=== PATIENT | male | born 1940 | race Caucasian/White ===

== ENCOUNTER 2017-08-17 00:41 | Observation (INO) | payer MEDICARE ==
[2017-08-17] VITALS (10 sets, daily range): BP systolic 137–166; BP diastolic 68–94; PULSE 79–127; RESP 18–22; TEMP 97.9–99; O2SAT 93–97
[~2017-08-17] VITALS: Ht 180.3 cm; Wt 108.0 kg
[~2017-08-17 00:41] MED LIST: ADVA250A INH; CEPH500C3 PO; DIGO0.25 PO; Duoneb HHN; PRED20 PO; SPIRCAP; VENTAER INH; ZOCO40TA PO
[2017-08-17] MEDS: RESP: ALBUTEROL 2.5 MG/IPRATROPIUM 0.5 MG NEB (SCH) INH ×3 (01:00→01:30)
[2017-08-17] MEDS ORDERED: methylPREDNISolone SOD SUCC 125 MG/2 ML VIAL IV PUSH ONE (01:00)
[2017-08-17] MEDS ORDERED: METOPROLOL TARTRATE 5 MG/5 ML VIAL IV PUSH STA (01:08)
--- NOTE | 2017-08-17 01:17 | PD ---
HPI Chief Complaint: Fall Time Seen by Provider: 00:53 Travel History International Travel<30 days: No Contact w/Intl Traveler<30days: No Traveled to known affect area: No History of Present Illness HPI 77yo M with PMH of CAD s/p cardiac stent, COPD, TIA, afib on coumadin presents to the ED with c/o multiple falls today after having dental surgery. Pt had all his teeth removed and had taken triazolam 0.25mg x2 at 12pm prior to the surgery. Pt then fell onto his knees right outside the dentist office after the surgery. Pt denies any head trauma but the said he may have hit his head. Pt was given an injection that reverses the triazolam and sent home. Pt then fell a few more times at home and could not get him up the last time he fell. Said he seems more confused today than normal and the confusion is not getting better over time today. Pt felt dizzy before but denies dizziness here. Denies any chest pain or sob but has audible wheezing and tachypnia and when asked if he wants treatment, said yes. Denies any fever, n/v, abdominal pain, focal weakness or numbness. 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) Cancer: Yes (BLADDER-- 2006 ) Cardiovascular Problems: No High Cholesterol: Yes Chemotherapy: Yes COPD: Yes Cerebrovascular Accident: Yes (05/2008) Diabetes: No Diminished Hearing: No Endocrine: No Genitourinary: Yes (bladder tumor (removed)) Immune Disorder: No Kidney Stones: No Musculoskeletal: No Neurologic: No Psychiatric: No Reproductive: No Respiratory: Yes Myocardial Infarction: Yes (2006 WITH STENT X 1) Radiation Therapy: No Renal Failure: No Sleep Apnea: No Thyroid Disease: No Tetanus Vaccination: > 5 Years Influenza Vaccination: Yes Past Surgical History Abdominal Surgery: Yes (appendix) AICD: No Appendectomy: Yes Arteriovenous Shunt: No Cardiac Surgery: Yes (CARDIAC STENT) Genitourinary Surgery: Yes (bladder tumor) Insulin Pump: No Joint Replacement: No Oral Surgery: Yes (08/16/17) Pacemaker: No Other Surgery: Yes (BLADDER CA ) Social History Alcohol Use: No (QUIT SEVERAL YEARS AGO) Tobacco Use: No (QUIT 2006) Substance Use: No Allergies-Medications (Allergen,Severity, Reaction): Coded Allergies: No Known Allergies (Verified Adverse Reaction, Unknown, 08/17/17) Reported Meds & Prescriptions Reported Meds & Active Scripts Active Reported Zostavax Inj (Zoster Vaccine Live) 0.65 Ml Inj 0.65 Ml SQ .ONCE Warfarin 2.5 Mg Tab 2.5 Mg PO Warfarin 5 Mg Tab 5 Mg PO ----BRIONES Ventolin Hfa 18 GM Inh (Albuterol Sulfate) 90 Mcg/Act Aer 1-2 Puff INH Q4-6H PRN Tramadol (Tramadol HCl) 50 Mg Tab 50 Mg PO TID PRN Refresh Tears Opth Drops (Carboxymethylcellulose Sodium Opth Drops) 0.5% Drops Incruse Ellipta Inh (Umeclidinium [place] Inh) 0.0625 Mg/Act Inh 62.5 Mcg INH DAILY Formoterol Fumarate Dihydrate 100 % Pow 12 Mcg INH Q12H Fluorouracil Topical 5% Cream 1 Applic TOPICAL BID Apply in sufficient amount to cover lesions. Apply using nonmetal applicator or suitable glove. Flunisolide Nasal [place] (Flunisolide) 0.025 Mg/Act Naspr 2 [place] EACH NARE BID Diltiazem ER 24 HR 240 Mg Caper 240 Mg PO DAILY Digoxin 0.25 Mg Tab 0.25 Mg PO - Digoxin 0.125 Mg Tab 0.125 Mg PO Atorvastatin (Atorvastatin Calcium) 80 Mg Tab 80 Mg PO HS Albuterol Neb (Albuterol Sulfate) 2.5 Mg/3 Ml Neb 2.5 Mg NEB Q4HR NEB While awake Review of Systems Except as stated in HPI: all other systems reviewed are Neg Physical Exam Narrative GENERAL: 77yo M in mild distress. SKIN: Focused skin assessment warm/dry. HEAD: Atraumatic. Normocephalic. EYES: Pupils equal and round at 3mm. EOMI. ENT: No nasal bleeding or discharge. Mucous membranes pink and moist. NECK: Trachea midline. No JVD. CARDIOVASCULAR: Irregular rate and rhythm 110s-120s. No murmur appreciated. RESPIRATORY: + accessory muscle use. Expiratory wheezing bilaterally. GASTROINTESTINAL: Abdomen soft, non-tender, nondistended. Hepatic and splenic margins not palpable. MUSCULOSKELETAL: Bilateral lower extremity: +Skin tear and ecchymoses in bilateral tib/fib. FROM in bilateral knees. Right foot: +Edema in right fourth toe. +Partial nail avulsion in right fourth toe. DP 2+ bilateral feet. Sensation intact. Moving all toes. NEUROLOGICAL: Awake and alert. No obvious cranial nerve deficits. Motor grossly within normal limits. Normal speech. PSYCHIATRIC: Appropriate mood and affect; insight and judgment normal. Data Data Last Documented VS Vital Signs Date Time Temp Pulse Resp B/P (MAP) Pulse Ox O2 Delivery O2 Flow Rate FiO2 08/17/17 02:33 99.0 94 08/17/17 02:10 20 96 Nasal Cannula 2.00 Orders Orders Complete Blood Count With Diff (08/17/17 00:54) Basic Metabolic Panel (Bmp) (08/17/17 00:54) Act Partial Throm Time (Ptt) (08/17/17 00:54) Prothrombin Time / Inr (Pt) (08/17/17 00:54) Troponin I (08/17/17 00:54) Chest, Single Ap (08/17/17 00:54) Methylprednisolone So Succ Inj (Solumedr (08/17/17 01:00) Albuterol-Ipratropium Neb (Duoneb Neb) (08/17/17 01:00) Tibia/Fibula (Ap/Lat) (08/17/17 ) Foot, Limited (2vws) (08/17/17 ) Tibia/Fibula (Ap/Lat) (08/17/17 ) Ct Brain W/O Iv Contrast(Rout) (08/17/17 ) Metoprolol Tartrate Inj (Lopressor Inj) (08/17/17 01:08) Digoxin (08/17/17 02:09) Admit Order (Ed Use Only) (08/17/17 02:49) Mri Brain W/O Contrast (08/17/17 ) Mra Brain W/O Contrast (Cow) (08/17/17 ) Mra Carotids W/O Contrast (08/17/17 ) Troponin I (08/17/17 02:49) Electrocardiogram (08/17/17 02:49) [employer] / Telemetry JADEN.Q8H (08/17/17 02:49) Vital Signs (Adult) Q4H (08/17/17 02:49) Diet Heart Healthy (08/17/17 Breakfast) Activity Oob With Assistance (08/17/17 02:49) Notify Dr: Other (08/17/17 02:49) Labs Laboratory Tests Test 08/17/17 00:55 White Blood Count 15.6 TH/MM3 Red Blood Count 5.66 MIL/MM3 Hemoglobin 16.0 GM/DL Hematocrit 48.0 % Mean Corpuscular Volume 84.9 FL Mean Corpuscular Hemoglobin 28.4 PG Mean Corpuscular Hemoglobin Concent 33.4 % Red Cell Distribution Width 15.1 % Platelet Count 269 TH/MM3 Mean Platelet Volume 7.9 FL Neutrophils (%) (Auto) 89.0 % Lymphocytes (%) (Auto) 4.5 % Monocytes (%) (Auto) 4.2 % Eosinophils (%) (Auto) 0.1 % Basophils (%) (Auto) 2.2 % Neutrophils # (Auto) 13.9 TH/MM3 Lymphocytes # (Auto) 0.7 TH/MM3 Monocytes # (Auto) 0.7 TH/MM3 Eosinophils # (Auto) 0.0 TH/MM3 Basophils # (Auto) 0.3 TH/MM3 CBC Comment AUTO DIFF Differential Comment AUTO DIFF CONFIRMED Platelet Estimate NORMAL Platelet Morphology Comment NORMAL Ovalocytes 1+ Prothrombin Time 12.0 SEC Prothromb Time International Ratio 1.2 RATIO Activated Partial Thromboplast Time 24.9 SEC Blood Urea Nitrogen 12 MG/DL Creatinine 1.20 MG/DL Random Glucose 136 MG/DL Calcium Level 8.5 MG/DL Sodium Level 140 MEQ/L Potassium Level 4.0 MEQ/L Chloride Level 106 MEQ/L Carbon Dioxide Level 22.7 MEQ/L Anion Gap 11 MEQ/L Estimat Glomerular Filtration Rate 58 ML/MIN Troponin I LESS THAN 0.02 NG/ML Digoxin Level 1.0 NG/ML [facility] Medical Decision Making Medical Screen Exam Complete: Yes Emergency Medical Condition: Yes Interpretation(s) EKG: Afib at 122bpm. 1m ST elevation in aVR. ST depression diffusely more prominent in V3-V6. Differential Diagnosis Afib RVR vs. COPD exacerbation vs. medication side effect vs. ACS Narrative Course 77yo M with multiple falls after dental surgery today where he had all his teeth extracted. Pt is in afib RVR in the 120s and audibly wheezing. EKG is concerning for ischemia but pt denies any chest pain. thought pt's confusion was due to the triazolam pt took prior to the surgery. However, it has been over 12 hours since the medication and pt is still confused as per . He is AAOx3 here. CT brain ordered to r/o CVA as well as ICH since there was a question of whether he hit his head from the fall. No focal neurologic deficits. Pt given lopressor 2.5mg IV for afib RVR. Heart rate improved after lopressor 2.5mg IV. Labs reviewed, leukocytosis at 15.6. H/H normal. BMP unremarkable. Troponin negative. CXR negative. Xray right foot showed mild to moderate osteoarthritis. No acute findings. Right fourth toe wrapped with xeroform and will need follow up with podiatry. CT brain negative. Xray bilateral tib/fib negative. Although pt has no focal neurologic deficits, pt may have had a TIA given his confusion. His said she cant tell if speech is slurred since pt had all his teeth pulled. Discussed with Dr. Prescott and he wanted me to put in orders including MRI and repeat troponin. Critical Care Narrative Aggregate critical care time was 45 minutes. Time to perform other separately billable procedures was not included in the critical care time. My time did not include minutes spent treating any other patients simultaneously or on activities that did not directly contribute to the patient's treatment. The services I provided to this patient were to treat and/or prevent clinically significant deterioration that could result in: cardiovascular collapse or . I provided critical care services requiring my management, as noted below: Chart data review, documentation time, medication orders and management, vital sign assessments/reviewing monitor data, ordering and reviewing lab tests, ordering and interpreting/reviewing x-rays and diagnostic studies, care of the patient and discussion of the patient with the admitting physicians. Diagnosis Primary Impression: Atrial fibrillation with RVR Dipika Ray DO Aug 17, 2017 01:17
[2017-08-17 01:25] LABS: AUTOMATED NEUTROPHIL # 13.9 TH/MM3 (1.8-7.7); BASOPHIL # 0.3 TH/MM3 (0-0.2); BASOPHIL % 2.2 % (0.0-2.0); EOSINOPHIL % 0.1 % (0.0-4.0); LYMPH % 4.5 % (9.0-44.0); LYMPHOCYTE # 0.7 TH/MM3 (1.0-4.8); MEAN CELL VOLUME 84.9 FL (80.0-100.0); MEAN CORPUSCULAR HEMOGLOBIN 28.4 PG (27.0-34.0); MEAN CORPUSCULAR HGB CONC 33.4 % (32.0-36.0); MEAN PLATELET VOLUME 7.9 FL (7.0-11.0); MONO % 4.2 % (0.0-8.0); MONOCYTE # 0.7 TH/MM3 (0-0.9); PLATELET COUNT 269 TH/MM3 (150-450); RED BLOOD COUNT 5.66 MIL/MM3 (4.50-5.90); RED CELL DISTRIBUTION WIDTH 15.1 % (11.6-17.2); WHITE BLOOD COUNT 15.6 TH/MM3 (4.0-11.0)
[2017-08-17 01:28] LABS: INTERNATIONAL NORMALIZED RATIO 1.2 RATIO
--- NOTE | 2017-08-17 01:36 | RADRPT ---
EXAM DATE: 08/17/2017 1:31 AM EDT AGE/SEX: 77 years / Male INDICATIONS: Trauma; fall. CLINICAL DATA: This is the patient's initial encounter. Patient reports that signs and symptoms have been present for 1 day and indicates a pain score of 3/10. MEDICAL/SURGICAL HISTORY: Cardiovascular disease. Chronic obstructive pulmonary disease. Carcinom a, bladder. Asthma, Atrial fibrillation . bladder tumor removed RADIATION DOSE: 56.35 CTDI (mGy) COMPARISON: No prior exams available for comparison. TECHNIQUE: CT of the head without contrast. Using automated exposure control and adjustment of the mA and/or kV according to patient size, radiation dose was kept as low as reasonably achievable to ob tain optimal diagnostic quality images. FINDINGS: Cerebrum: The ventricles are normal for age. No evidence of midline shift, mass lesion, hemorrhage or acute infarction. No extraaxial fluid collections are seen. Posterior Fossa: The cerebellum and brainstem are intact. The 4th ventricle is midline. The cerebe llopontine angle is unremarkable. Extracranial: The visualized portion of the orbits is intact. Skull: The calvaria is intact. No evidence of skull fracture. CONCLUSION: 1. No acute intracranial abnormalities. Electronically signed by: Bernard Santos MD 08/17/2017 1:35 AM EDT
[2017-08-17 01:40] LABS: BICARBONATE 22.7 MEQ/L (21.0-32.0); BLOOD UREA NITROGEN 12 MG/DL (7-18); CALCIUM 8.5 MG/DL (8.5-10.1); CHLORIDE 106 MEQ/L (98-107); GLOMERULAR FILTRATION RATE 58 ML/MIN (>89); GLUCOSE,RANDOM 136 MG/DL (74-106); SODIUM (NA) 140 MEQ/L (136-145)
[2017-08-17 01:43] LABS: TROPONIN I LESS THAN 0.02 NG/ML (0.02-0.05)
--- NOTE | 2017-08-17 01:45 | RADRPT ---
EXAM DATE: 08/17/2017 1:42 AM EDT AGE/SEX: 77 years / Male INDICATIONS: General weakness, and fall. CLINICAL DATA: This is the patient's initial encounter. Patient reports that signs and symptoms have been present for 1 day and indicates a pain score of 0/10. MEDICAL/SURGICAL HISTORY: . Cardiovascular disease. Chronic obstructive pulmonary disease. Carc inoma, bladder. Asthma, Atrial fibrillation . Myocardial infarction. Stroke. . Bladder tumor removed . Stent COMPARISON: No prior exams available for comparison. FINDINGS: Bony structures are intact and in normal alignment. Osseous density is slightly decreased. Soft tissu es are unremarkable. No radiopaque foreign bodies seen. CONCLUSION: No acute findings. Osteopenia. Electronically signed by: Bernard Santos MD 08/17/2017 1:44 AM EDT
--- NOTE | 2017-08-17 01:45 | RADRPT ---
EXAM DATE: 08/17/2017 1:40 AM EDT AGE/SEX: 77 years / Male INDICATIONS: General weakness, and fall. CLINICAL DATA: This is the patient's initial encounter. Patient reports that signs and symptoms have been present for 1 day and indicates a pain score of 0/10. MEDICAL/SURGICAL HISTORY: . Cardiovascular disease. Chronic obstructive pulmonary disease. Carc inoma, bladder. Asthma, Atrial fibrillation. Myocardial infarction. Stroke. . Bladder tumor removed. Stent. COMPARISON: No prior exams available for comparison. FINDINGS: There is mild to moderate osteoarthritis in the right foot. No acute fracture or dislocation. Mild os teopenia. CONCLUSION: Mild to moderate osteoarthritis. No acute findings. Electronically signed by: Bernard Santos MD 08/17/2017 1:43 AM EDT
--- NOTE | 2017-08-17 01:47 | RADRPT ---
EXAM DATE: 08/17/2017 1:44 AM EDT AGE/SEX: 77 years / Male INDICATIONS: General weakness, and fall. CLINICAL DATA: This is the patient's initial encounter. Patient reports that signs and symptoms have been present for 1 day and indicates a pain score of 0/10. MEDICAL/SURGICAL HISTORY: . Cardiovascular disease. Chronic obstructive pulmonary disease. Carc inoma, bladder. Asthma, Atrial fibrillation . Myocardial infarction. Stroke. . Bladder tumor removed . Stent. COMPARISON: No prior exams available for comparison. FINDINGS: Bony structures are intact and in normal alignment. Osseous density is normal. Soft tissues are unre markable. No radiopaque foreign bodies seen. CONCLUSION: No acute findings. Electronically signed by: Bernard Santos MD 08/17/2017 1:46 AM EDT
--- NOTE | 2017-08-17 01:48 | RADRPT ---
EXAM DATE: 08/17/2017 1:45 AM EDT AGE/SEX: 77 years / Male INDICATIONS: General weakness, and fall. CLINICAL DATA: This is the patient's initial encounter. Patient reports that signs and symptoms have been present for 1 day and indicates a pain score of 0/10. MEDICAL/SURGICAL HISTORY: . Cardiovascular disease. Chronic obstructive pulmonary disease. Carc inoma, bladder. Asthma, Atrial fibrillation . Myocardial infarction. Stroke. . Bladder tumor removed . Stent. COMPARISON: No prior exams available for comparison. FINDINGS: A single AP view of the chest demonstrates the lungs to be symmetrically aerated without evidence of mass, infiltrate or effusion. The cardiomediastinal contours are unremarkable. Osseous structures a re intact. CONCLUSION: No active disease. Electronically signed by: Bernard Santos MD 08/17/2017 1:46 AM EDT
[2017-08-17 01:57] LABS: OVALOCYTES 1+ (NORMAL)
[2017-08-17] MEDS ORDERED: DILT-48 PO (02:10)
[2017-08-17] MEDS ORDERED: ZOSTINJ SQ (02:10)
[2017-08-17] MEDS ORDERED: FLUO1CRE3 TOPICAL (02:10)
[2017-08-17] MEDS ORDERED: UMEC1INH INH (02:10)
[2017-08-17] MEDS ORDERED: ALBU0.08 NEB (02:10)
[2017-08-17] MEDS ORDERED: DIGO0.25 PO (02:10)
[2017-08-17] MEDS ORDERED: FORM1POW2 INH (02:10)
[2017-08-17] MEDS ORDERED: ATOR80TA45 PO (02:10)
[2017-08-17] MEDS ORDERED: VENTAER INH (02:10)
[2017-08-17] MEDS ORDERED: REFR0.5D4 (02:10)
[2017-08-17] MEDS ORDERED: FLUN25I EACH NARE (02:10)
[2017-08-17] MEDS ORDERED: TRAM50TA PO (02:10)
[2017-08-17] MEDS ORDERED: WARF-18 PO (02:10)
[2017-08-17] MEDS ORDERED: WARF-23 PO (02:10)
[2017-08-17] MEDS ORDERED: DIGO0.12 PO (02:10)
[2017-08-17] MEDS ORDERED: GADODIAMIDE PF 287 MG/ML 20 ML VIAL (for RAD MRI) IVCONTRAST ONE (07:55)
--- NOTE | 2017-08-17 08:07 | RADRPT ---
EXAM DATE: 08/17/2017 8:03 AM EDT AGE/SEX: 77 years / Male INDICATIONS: Dizziness. CLINICAL DATA: This is the patient's initial encounter. Patient reports that signs and symptoms have been present for 2 days and indicates a pain score of 0/10. MEDICAL/SURGICAL HISTORY: Hypertension. Afib. Abdominal aortic aneurysm repair. Bladder tumor, cardiac stent. [place] [facility] [place] [facility] [place] CAR[place], [place]17/2017. [facility] [place]/O [place], 08/17/2017. . TECHNIQUE: 3D [id number] MRA was performed. Source images, multiplanar STS MIP, and 3D volum e MIP reconstructions were reviewed. FINDINGS: There is excellent visualization of the major intracranial arteries out to the second-order branch ve ssels. There is no evidence for aneurysm, vessel truncation or stenosis, and no evidence for vascula r malformation. CONCLUSION: 1. Negative MRA Cow ([place]) non contrast. Electronically signed by: Randolph Green MD 08/17/2017 8:06 AM EDT
--- NOTE | 2017-08-17 08:34 | RADRPT ---
EXAM DATE: 08/17/2017 8:31 AM EDT AGE/SEX: 77 years / Male INDICATIONS: Dizziness. CLINICAL DATA: This is the patient's initial encounter. Patient reports that signs and symptoms have been present for 2 days and indicates a pain score of 0/10. MEDICAL/SURGICAL HISTORY: Hypertension. Cardiac stent. Abdominal aortic aneurysm repair. Bladd er tumor, cardiac stent. COMPARISON: [facility] – [place], [place] BRAIN W/O CONTRAST, 08/17/2017. . TECHNIQUE: Multiplanar, multisequence examination of the brain was performed without contrast. FINDINGS: There is mild diffuse prominence of the CSF spaces, ventricles and cisterns. There are scattered foci of increased FLAIR signal in the centrum semiovale and periventricular white matter bilaterally, mos t characteristic of chronic microvascular ischemic disease. There is no evidence for acute infarction . There is no hemorrhage. CONCLUSION: 1. Atrophy and mild white matter disease. Electronically signed by: Randolph Green MD 08/17/2017 8:33 AM EDT
--- NOTE | 2017-08-17 08:41 | HHI.HP ---
HPI Service [facility] Hospitalists Primary Care Physician Pete Cui MD, PhD Admission Diagnosis Afib RVR, possible TIA Chief Complaint: Multiple falls Travel History International Travel<30 Days: No Contact w/Intl Traveler <30 Da: No Traveled to Known Affected Are: No History of Present Illness This 77-year-old male patient with past medical history which includes COPD, bladder cancer status post resection March 2007 then TURP 2015,, AAA status post entered endovascular repair on 07/19/2014 with residual AAA sac measuring 4.6 x 4.5 cm nonvascular ultrasound March 2017, hyperlipidemia, CAD status post [place] 2008, chronic atrial fibrillation/flutter, GERD, squamous cell carcinoma and osteoarthritis. Presented to the ER with c/o multiple falls after having dental surgery. Pt had all his remaining teeth removed and had taken triazolam 0.25mg x2 at 12pm prior to the surgery. Pt then fell onto his knees right outside the dentist office after the surgery. Pt denies any head trauma but the said he may have hit his head. Pt was given an injection that reverses the triazolam and sent home. Pt then fell a few more times at home and could not get him up the last time he fell. Said he seems more confused today than normal. Pt felt dizzy before but denies dizziness here. Denies any chest pain, sob, fever, n/v, abdominal pain, focal weakness or numbness. Patient reports feeling well at this time asking to go home. Offers no complaints at this time. Review of Systems Constitutional: DENIES: Fatigue, Fever, Chills Respiratory: DENIES: Cough, Sputum production, Shortness of breath Cardiovascular: DENIES: Chest pain, Palpitations, Dyspnea on Exertion Neurologic: DENIES: Abnormal gait, Headache, Localized weakness, Speech Problems Psychiatric: DENIES: Anxiety, Confusion, Depression Past Family Social History Past Medical History COPD, bladder cancer status post resection March 2007 then TURP 2015, AAA status post entered endovascular repair on 07/19/2014 with residual AAA sac measuring 4.6 x 4.5 cm nonvascular ultrasound March 2017, hyperlipidemia, CAD status post HI 2009, chronic atrial fibrillation/flutter, GERD, squamous cell carcinoma osteoarthritis. Past Surgical History Bladder cancer resected March 2007 TURP 2016 AAA endovascular repair July 2014 Appendectomy Cataract surgery PTCA with stent placement Tonsils and adenoidectomy Reported Medications Warfarin 2.5 Mg Tab 2.5 Mg PO Warfarin 5 Mg Tab 5 Mg PO ---BRIONES Ventolin Hfa 18 GM Inh (Albuterol Sulfate) 90 Mcg/Act Aer 1-2 Puff INH Q4-6H PRN Tramadol (Tramadol HCl) 50 Mg Tab 50 Mg PO TID PRN Refresh Tears Opth Drops (Carboxymethylcellulose Sodium Opth Drops) 0.5% Drops Incruse Ellipta Inh (Umeclidinium [place] Inh) 0.0625 Mg/Act Inh 62.5 Mcg INH DAILY Formoterol Fumarate Dihydrate 100 % Pow 12 Mcg INH Q12H Fluorouracil Topical 5% Cream 1 Applic TOPICAL BID Apply in sufficient amount to cover lesions. Apply using nonmetal applicator or suitable glove. Flunisolide Nasal [place] (Flunisolide) 0.025 Mg/Act Naspr 2 [place] EACH NARE BID Diltiazem ER 24 HR 240 Mg Caper 240 Mg PO DAILY Digoxin 0.25 Mg Tab 0.25 Mg PO Digoxin 0.125 Mg Tab 0.125 Mg PO Atorvastatin (Atorvastatin Calcium) 80 Mg Tab 80 Mg PO HS Albuterol Neb (Albuterol Sulfate) 2.5 Mg/3 Ml Neb 2.5 Mg NEB Q4HR NEB While awake Allergies: Coded Allergies: No Known Allergies (Verified Adverse Reaction, Unknown, 08/17/17) Family History Family medical history includes [place] Social History Lives with significant other Denies daily EtOH use Former smoker Denies illicit drug use Physical Exam Vital Signs Vital Signs Date Time Temp Pulse Resp B/P (MAP) Pulse Ox O2 Delivery O2 Flow Rate FiO2 08/17/17 07:25 98.1 108 18 158/94 (115) 96 08/17/17 05:38 98.0 102 22 166/92 (116) 97 08/17/17 02:33 99.0 94 08/17/17 02:10 124 20 145/73 (97) 96 Nasal Cannula 2.00 08/17/17 00:49 96 Nasal Cannula 2.00 08/17/17 00:45 115 20 144/83 (103) 93 Physical Exam GENERAL: This is an elderly 77 year old male patient, well-developed patient, SKIN: No rashes, ecchymoses or lesions. Cool and dry. HEAD: Atraumatic. Normocephalic. No temporal or scalp tenderness. EYES: Extraocular motions intact. No scleral icterus. No injection or drainage. CARDIOVASCULAR: Irregularly irregular RESPIRATORY: GASTROINTESTINAL: Abdomen soft, non-tender, nondistended. No hepato-splenomegaly , or palpable masses. No guarding. MUSCULOSKELETAL: Extremities without clubbing, cyanosis, or edema. No joint tenderness, effusion, or edema noted. No calf tenderness. Negative Homans sign bilaterally. NEUROLOGICAL: Awake and alert. No focal deficits noted. Motor and sensory grossly within normal limits. 4-5 out of 5 muscle strength in all muscle groups. Normal speech. Laboratory Laboratory Tests Test 08/17/17 00:55 08/17/17 03:30 White Blood Count 15.6 Red Blood Count 5.66 Hemoglobin 16.0 Hematocrit 48.0 Mean Corpuscular Volume 84.9 Mean Corpuscular Hemoglobin 28.4 Mean Corpuscular Hemoglobin Concent 33.4 Red Cell Distribution Width 15.1 Platelet Count 269 Mean Platelet Volume 7.9 Neutrophils (%) (Auto) 89.0 Lymphocytes (%) (Auto) 4.5 Monocytes (%) (Auto) 4.2 Eosinophils (%) (Auto) 0.1 Basophils (%) (Auto) 2.2 Neutrophils # (Auto) 13.9 Lymphocytes # (Auto) 0.7 Monocytes # (Auto) 0.7 Eosinophils # (Auto) 0.0 Basophils # (Auto) 0.3 CBC Comment AUTO DIFF Differential Comment AUTO DIFF CONFIRMED Platelet Estimate NORMAL Platelet Morphology Comment NORMAL Ovalocytes 1+ Prothrombin Time 12.0 Prothromb Time International Ratio 1.2 Activated Partial Thromboplast Time 24.9 Blood Urea Nitrogen 12 Creatinine 1.20 Random Glucose 136 Calcium Level 8.5 Sodium Level 140 Potassium Level 4.0 Chloride Level 106 Carbon Dioxide Level 22.7 Anion Gap 11 Estimat Glomerular Filtration Rate 58 Troponin I LESS THAN 0.02 LESS THAN 0.02 Digoxin Level 1.0 Result Diagram: 08/17/175408/17/1754 Imaging Last Impressions Chest X-Ray 08/17/1753 Signed Impressions: CONCLUSION: No active disease. Tibia/Fibula X-Ray 08/17/17 0000 Signed Impressions: CONCLUSION: No acute findings. Osteopenia. Head Magnetic Resonance Angiography 08/17/17 0000 Signed Impressions: CONCLUSION: 1. Negative MRA Cow ([place]) non contrast. Head CT 08/17/17 0000 Signed Impressions: CONCLUSION: 1. No acute intracranial abnormalities. Foot X-Ray 08/17/17 0000 Signed Impressions: CONCLUSION: Mild to moderate osteoarthritis. No acute findings. Caprini VTE Risk Assessment Caprini VTE Risk Assessment: Mod/High Risk (score >= 2) Caprini Risk Assessment Model Point Value = 1 Point Value = 2 Point Value = 3 Point Value = 5 Age 41-60 Minor surgery BMI > 25 kg/m2 Swollen legs Varicose veins or History of unexplained or recurrent spontaneous Oral contraceptives or hormone replacement Sepsis (< 1 month) Serious lung disease, including pneumonia (< 1 month) Abnormal pulmonary function Acute myocardial infarction Congestive heart failure (< 1 month) History of inflammatory bowel disease Medical patient at bed rest Age 61-74 Arthroscopic surgery Major open surgery (> 45 min) Laparoscopic surgery (> 45 min) Malignancy Confined to bed (> 72 hours) Immobilizing plaster cast Central venous access Age >= 75 History of VTE Family history of VTE Factor V Leiden Prothrombin [id number] Lupus anticoagulant Anticardiolipin antibodies Elevated serum homocysteine Heparin-induced thrombocytopenia Other congenital or acquired thrombophilia Stroke (< 1 month) Elective arthroplasty Hip, pelvis, or leg fracture Acute spinal cord injury (< 1 month) Prophylaxis Regimen Total Risk Factor Score Risk Level Prophylaxis Regimen 0-1 Low Early ambulation 2 Moderate Order ONE of the following: *Sequential Compression Device (SCD) *Heparin 5000 units SQ BID 3-4 Higher Order ONE of the following medications: *Heparin 5000 units SQ TID *Enoxaparin/Lovenox 40 mg SQ daily (WT < 150 kg, CrCl > 30 mL/min) *Enoxaparin/Lovenox 30 mg SQ daily (WT < 150 kg, CrCl > 10-29 mL/min) *Enoxaparin/Lovenox 30 mg SQ BID (WT < 150 kg, CrCl > 30 mL/min) AND/OR *Sequential Compression Device (SCD) 5 or more Highest Order ONE of the following medications: *Heparin 5000 units SQ TID (Preferred with Epidurals) *Enoxaparin/Lovenox 40 mg SQ daily (WT < 150 kg, CrCl > 30 mL/min) *Enoxaparin/Lovenox 30 mg SQ daily (WT < 150 kg, CrCl > 10-29 mL/min) *Enoxaparin/Lovenox 30 mg SQ BID (WT < 150 kg, CrCl > 30 mL/min) AND *Sequential Compression Device (SCD) Assessment and Plan Problem List: (1) Multiple falls ICD Codes: R29.6 - Repeated falls Plan: This 77-year-old male patient with past medical history which includes COPD, bladder cancer status post resection March 2007 then TURP 2015,, AAA status post entered endovascular repair on 07/19/2014 with residual AAA sac measuring 4.6 x 4.5 cm nonvascular ultrasound March 2017, hyperlipidemia, CAD status post HI 2008, chronic atrial fibrillation/flutter, GERD, squamous cell carcinoma and osteoarthritis. Presented to the ER with c/o multiple falls after having dental surgery. Pt had all his remaining teeth removed and had taken triazolam 0.25mg x2 at 12pm prior to the surgery. Pt then fell onto his knees right outside the dentist office after the surgery. Pt denies any head trauma but the said he may have hit his head. Pt was given an injection that reverses the triazolam and sent home. Pt then fell a few more times at home and could not get him up the last time he fell. Said he seems more confused today than normal. Pt felt dizzy before but denies dizziness here. Denies any chest pain, sob, fever, n/v, abdominal pain, focal weakness or numbness. Patient reports feeling well at this time asking to go home. Offers no complaints at this time. CT of the head reviewed and reveals no acute intracranial abnormalities Head MRA reviewed and reveals negative MRA cow ([place]) noncontrast Right foot x-ray reviewed and reveals mild to moderate osteoarthritis no acute findings Right tib-fib x-ray reviewed and reveals no acute findings Left tib-fib x-ray reviewed and reveals no acute findings. Osteopenia Physical therapy consulted (2) CAD (coronary artery disease) ICD Codes: I25.10 - Atherosclerotic heart disease of [place] coronary artery without angina pectoris Plan: Patient has history of HI in 2008 status post stent placement Continue patient's home atorvastatin Initial troponin less than 0.02 x 2, 3rd troponin pending EKG shows anterior lateral depression 2D echocardiogram requested Holter monitor Consult cardiology (3) Atrial fibrillation ICD Codes: I48.91 - Unspecified atrial fibrillation Plan: Patient has chronic atrial fibrillation/flutter Patient was in A. fib RVR upon arrival to the emergency department received 2.5 mg of IV Lopressor in the emergency department Coumadin currently on hold due to dental extractions INR subtherapeutic 1.2, will resume Coumadin tonight Continue patient's home digoxin 0.125 mg Saturday and 0.25 mg Saturday and Saturday Digoxin level 1.0 Continue patient's home Cardizem 240 mg/day Continuous cardiac telemetry (4) COPD (chronic obstructive pulmonary disease) ICD Codes: J44.9 - Chronic obstructive pulmonary disease, unspecified Plan: Continue patient's home Incruse Ellipta inhaler daily and Formoterol neb BID Duonebs Q6H while awake and as needed CXR reviewed and reveled no acute disease (5) Hyperlipidemia ICD Codes: E78.5 - Hyperlipidemia, unspecified Plan: Continue patient's home statin (6) AAA (abdominal aortic aneurysm) ICD Codes: I71.4 - Abdominal aortic aneurysm, without rupture Plan: AAA status post entered endovascular repair on 07/19/2014 with residual AAA sac measuring 4.6 x 4.5 cm nonvascular ultrasound March 2017 Recommend continuing outpatient surveillance after discharge Assessment and Plan Patient examined. Assessment and plan formulated with Natividad Gutierrez PA-C. I agree with the above. Pt's falls likely d/t benzodiazepine with dental procedure. elevated HR improved with IVFs. Pt may complete holter at home and return devise to [facility] Saturday for interpretation. f/u with PCP, Dr. Cui, in 1 week f/u with Cardiology, Dr. Salas Rivera, in 2 weeks. Natividad Gutierrez Aug 17, 2017 08:41 Nestor Gayle DO Aug 17, 2017 16:37
[2017-08-17] MEDS ORDERED: traMADol HCL 50 MG TAB PO PRN (08:45)
[2017-08-17] MEDS ORDERED: UMECLIDINIUM BROMIDE 62.5 MCG INH SCH (09:00)
[2017-08-17] MEDS ORDERED: DIGOXIN 0.25 MG TAB PO SCH (09:00)
[2017-08-17] MEDS ORDERED: [UNRECOGNIZED DRUG - OTHER] INH SCH (09:00)
[2017-08-17] MEDS ORDERED: DILTIAZEM-CD 240 MG CAP ER PO SCH (09:00)
[2017-08-17] MEDS ORDERED: [UNRECOGNIZED DRUG - OTHER] INH SCH (09:00)
[2017-08-17] MEDS ORDERED: RESP: ALBUTEROL 2.5 MG/IPRATROPIUM 0.5 MG NEB (PRN) NEB (09:00)
--- NOTE | 2017-08-17 09:30 | RADRPT ---
EXAM DATE: 08/17/2017 9:23 AM EDT AGE/SEX: 77 years / Male INDICATIONS: Dizziness. CLINICAL DATA: This is the patient's initial encounter. Patient reports that signs and symptoms have been present for 2 days and indicates a pain score of 0/10. MEDICAL/SURGICAL HISTORY: Hypertension. Afib Abdominal aortic aneurysm repair. Bladder tumor, cardiac stent COMPARISON: No prior exams available for comparison. TECHNIQUE: 20cc ml Omniscan (gadodiamide) contrast infused MRA (single exam dose) of the extracrani al circulation was performed using a neurovascular coil. Postprocessing was performed, including rot ating sub-volume maximum intensity projections of each carotid artery, rotating full-volume maximum i ntensity projections of both carotid arteries, sagittal and coronal sliding thin-slab reformations of each carotid artery, and left oblique sliding thin-slab reformation through the aortic arch to inclu de the origin of the arch branch vessels. FINDINGS: Aortic Arch : There is a three-vessel origin of the great vessels from the aorta. No evidence of o stial narrowing. Right Carotid : The common carotid artery is intact. The carotid bulb has a normal configuration wi thout ulceration or narrowing. The internal carotid artery lumen is smooth without stenosis. The ex ternal carotid artery is intact. Left Carotid : The common carotid artery is intact. The carotid bulb has a normal configuration wit hout ulceration or narrowing. The internal carotid artery lumen is smooth without stenosis. The ext ernal carotid artery is intact. Vertebrals : The vertebral arteries have a symmetric diameter. No stenotic lesions are seen. CONCLUSION: 1. Negative MRA Carotids. Percent stenosis is calculated using the diameter of the stenotic region over the diameter of the nor mal distal internal carotid artery Electronically signed by: Randolph Green MD 08/17/2017 9:29 AM EDT
[2017-08-17 12:05] LABS: TROPONIN I LESS THAN 0.02 NG/ML (0.02-0.05)
--- NOTE | 2017-08-17 12:33 | PD.CONS ---
HPI Consult Requested By Reason for Consult Abnormal ECG Primary Care Physician Pete Cui MD, PhD History of Present Illness This 77-year-old male patient with past medical history which includes COPD, bladder cancer status post resection March 2007 then TURP 2015,, AAA status post entered endovascular repair on 07/19/2014 with residual AAA sac measuring 4.6 x 4.5 cm nonvascular ultrasound March 2017, hyperlipidemia, CAD status post [place] 2008, permanent atrial fibrillation/flutter, GERD, squamous cell carcinoma and osteoarthritis. Presented to the ER with c/o multiple falls after having dental surgery. Pt had all his remaining teeth removed and had taken triazolam 0.25mg x2 at 12pm prior to the surgery. Pt then fell onto his knees right outside the dentist office after the surgery. Pt denied any head trauma but the said he may have hit his head. Pt was given an injection that reverses the triazolam and sent home. Pt then fell a few more times at home and could not get him up the last time he fell. He seemed more confused than normal and felt dizzy. Underwent MRA brain unremarkable. ECG was obtained which revealed AFib RVR with anterolateral STD, new compared to ECG from 2010. I was consulted to comment on these changes. Denies any chest pain, sob, fever, n/v, abdominal pain, focal weakness or numbness. Patient reports feeling well at this time asking to go home. Offers no complaints at this time. Review of Systems negative other than noted in HPI Past Family Social History Allergies: Coded Allergies: No Known Allergies (Verified Adverse Reaction, Unknown, 08/17/17) Past Medical History COPD, bladder cancer status post resection March 2007 then TURP 2015, AAA status post entered endovascular repair on 07/19/2014 with residual AAA sac measuring 4.6 x 4.5 cm nonvascular ultrasound March 2017, hyperlipidemia, CAD status post [place] 2008, chronic atrial fibrillation/flutter, GERD, squamous cell carcinoma osteoarthritis. Past Surgical History Bladder cancer resected March 2007 TURP 2016 AAA endovascular repair July 2014 Appendectomy Cataract surgery PTCA with stent placement Tonsils and adenoidectomy Reported Medications Reported Meds & Active Scripts Active Reported Zostavax Inj (Zoster Vaccine Live) 0.65 Ml Inj 0.65 Ml SQ .ONCE Warfarin 2.5 Mg Tab 2.5 Mg PO - Warfarin 5 Mg Tab 5 Mg PO - Ventolin Hfa 18 GM Inh (Albuterol Sulfate) 90 Mcg/Act Aer 1-2 Puff INH Q4-6H PRN Tramadol (Tramadol HCl) 50 Mg Tab 50 Mg PO TID PRN Refresh Tears Opth Drops (Carboxymethylcellulose Sodium Opth Drops) 0.5% Drops Incruse Ellipta Inh (Umeclidinium [place] Inh) 0.0625 Mg/Act Inh 62.5 Mcg INH DAILY Formoterol Fumarate Dihydrate 100 % Pow 12 Mcg INH Q12H Fluorouracil Topical 5% Cream 1 Applic TOPICAL BID Apply in sufficient amount to cover lesions. Apply using nonmetal applicator or suitable glove. Flunisolide Nasal [place] (Flunisolide) 0.025 Mg/Act Naspr 2 [place] EACH NARE BID Diltiazem ER 24 HR 240 Mg Caper 240 Mg PO DAILY Digoxin 0.25 Mg Tab 0.25 Mg PO Digoxin 0.125 Mg Tab 0.125 Mg PO Atorvastatin (Atorvastatin Calcium) 80 Mg Tab 80 Mg PO HS Albuterol Neb (Albuterol Sulfate) 2.5 Mg/3 Ml Neb 2.5 Mg NEB Q4HR NEB While awake Active Ordered Medications Current Medications Medications (Trade) Dose Ordered Sig/Aiden Route Start Time Stop Time Status Last Admin (Lipitor) 80 mg HS PO 08/17/17 21:00 (Lanoxin) 0.25 mg EVERY OTHER DAY PO 08/17/17 09:00 08/17/17 09:58 (Cardizem Cd) 240 mg DAILY PO 08/17/17 09:00 08/17/17 09:58 (Ultram) 50 mg TID PRN PO 08/17/17 08:45 Patient Own Medication PT OWN MED: FORMOTE... Q12H INH 08/17/17 09:00 Future Hold Patient Own Medication PT OWN MED: UMECLIDINIUM BROM... DAILY INH 08/17/17 09:00 Future Hold (Duoneb Neb) 1 ampule Q6HR WHILE AWAKE NEB NEB 08/17/17 14:00 (Duoneb Neb) 1 ampule Q4HR NEB PRN NEB 08/17/17 09:00 (Coumadin) 5 mg DAILY@1600 PO 08/17/17 16:00 (Coumadin Booklet) 1 ONCE ONCE .XX 08/17/17 16:00 6/9/18 16:01 Family History Family medical history includes [place] Social History Lives with significant other Denies daily EtOH use Former smoker Denies illicit drug use Physical Exam Vital Signs Vital Signs Date Time Temp Pulse Resp B/P (MAP) Pulse Ox O2 Delivery O2 Flow Rate FiO2 08/17/17 11:52 97.9 127 18 137/78 (97) 95 08/17/17 07:25 98.1 108 18 158/94 (115) 96 08/17/17 07:00 105 08/17/17 05:38 98.0 102 22 166/92 (116) 97 08/17/17 02:33 99.0 94 08/17/17 02:10 124 20 145/73 (97) 96 Nasal Cannula 2.00 08/17/17 00:49 96 Nasal Cannula 2.00 08/17/17 00:45 115 20 144/83 (103) 93 Physical Exam GENERAL: comfortable appearing sitting up and speaking full sentences appropriately SKIN: multiple areas of ecchymosis of various stages of healing. There are bandages over bl knees cdi. HEAD: Atraumatic. Normocephalic. No temporal or scalp tenderness. EYES: Extraocular motions intact. No scleral icterus. No injection or drainage. CARDIOVASCULAR: Irregularly irregular, tachycardic RESPIRATORY: CTAB GASTROINTESTINAL: Abdomen soft, non-tender, nondistended. No hepato-splenomegaly , or palpable masses. No guarding. MUSCULOSKELETAL: Extremities without clubbing, cyanosis, or edema. No joint tenderness, effusion, or edema noted. NEUROLOGICAL: grossly nonfocal Laboratory Laboratory Tests Test 08/17/17 00:55 08/17/17 03:30 08/17/17 10:55 White Blood Count 15.6 Red Blood Count 5.66 Hemoglobin 16.0 Hematocrit 48.0 Mean Corpuscular Volume 84.9 Mean Corpuscular Hemoglobin 28.4 Mean Corpuscular Hemoglobin Concent 33.4 Red Cell Distribution Width 15.1 Platelet Count 269 Mean Platelet Volume 7.9 Neutrophils (%) (Auto) 89.0 Lymphocytes (%) (Auto) 4.5 Monocytes (%) (Auto) 4.2 Eosinophils (%) (Auto) 0.1 Basophils (%) (Auto) 2.2 Neutrophils # (Auto) 13.9 Lymphocytes # (Auto) 0.7 Monocytes # (Auto) 0.7 Eosinophils # (Auto) 0.0 Basophils # (Auto) 0.3 CBC Comment AUTO DIFF Differential Comment AUTO DIFF CONFIRMED Platelet Estimate NORMAL Platelet Morphology Comment NORMAL Ovalocytes 1+ Prothrombin Time 12.0 Prothromb Time International Ratio 1.2 Activated Partial Thromboplast Time 24.9 Blood Urea Nitrogen 12 Creatinine 1.20 Random Glucose 136 Calcium Level 8.5 Sodium Level 140 Potassium Level 4.0 Chloride Level 106 Carbon Dioxide Level 22.7 Anion Gap 11 Estimat Glomerular Filtration Rate 58 Troponin I LESS THAN 0.02 LESS THAN 0.02 LESS THAN 0.02 Digoxin Level 1.0 Total Creatine Kinase 197 Creatine Kinase MB 1.6 Result Diagram: 08/17/17 0055 08/17/17 0055 Assessment and Plan Assessment and Plan Abnormal ECG - anterolateral STD of unclear duration. Patient has no clinical symptoms of ACS. -outpatient lexiscan Atrial Fibrillation with RVR - appears volume contracted ? - IVF 1L over 5 hours. - continue digoxin and cardizem - coumadin Salas Rivera DO Aug 17, 2017 12:33
[2017-08-17] MEDS ORDERED: RESP: ALBUTEROL 2.5 MG/IPRATROPIUM 0.5 MG NEB (SCH) NEB (14:00)
--- NOTE | 2017-08-17 14:56 | EKG ---
Date Performed: 08/17/2017 Time Performed: 00:49:13 PTAGE: 77 years EKG: ATRIAL FIBRILLATION WITH RAPID VENTRICULAR RESPONSE ST DEVIATION AND MODERATE T-WAVE ABNORM ALITY, CONSIDER LATERAL ISCHEMIA ABNORMAL ECG PREVIOUS TRACING : 10/19/2010 13.33 Since the previous tracing, no significant change noted DOCTOR: Cooper Monsalve Interpretating Date/Time 08/17/2017 14:54:45
[2017-08-17] MEDS ORDERED: WARFARIN SOD 5 MG TAB PO SCH (16:00)
--- NOTE | 2017-08-17 16:31 | HHI.FF ---
Face to Face Verification Diagnosis: (1) Multiple falls (2) CAD (coronary artery disease) (3) Atrial fibrillation (4) COPD (chronic obstructive pulmonary disease) Home Health Nursing Order: Medical education Signs/symptoms of disease process Medication education-adverse effect Nursing assessment with vital signs I have seen patient Raghu Cervantes on 08/17/17. My clinical findings support the need for the requested home health care services because: Deconditioned w/ increased weakness Med compliance is questionable Limited ability to care for self I certify that my clinical findings support that this patient is homebound because: Impaired cognitive ability/safety Unsafe to leave home unassisted Need for psychosocial assistance Unable to use public transportation Nestor Gayle DO Aug 17, 2017 16:31
[2017-08-17] MEDS ORDERED: ATORVASTATIN 80 MG TAB PO SCH (21:00)
--- NOTE | 2017-08-18 15:13 | EKG ---
Date Performed: 08/17/2017 Time Performed: 09:17:34 PTAGE: 77 years EKG: Atrial fibrillation with rapid ventricular response. Possible inferior infarct - age undete rmined Ant/septal and lateral ST-T changes may be due to myocardial ischemia Abnormal ECG NO PREVIOUS TRACING DOCTOR: Cooper Monsalve Interpretating Date/Time 08/18/2017 15:11:34
--- NOTE | 2017-08-19 14:39 | HM ---
Date Performed: 08/17/2017 Time Performed: 12:53:00 HOOKUP DATE: 08/17/17 12:53:00 PM Sat ANALYSIS START TIME: 08/17/2017 12:58:00 PM ANALYSIS END TIME: 08/18/2017 12:01:12 PM PATIENT AGE: 77 PATIENT HEIGHT PATIENT WEIGHT DRUG LIST PATIENT DIAGNOSIS: afib rvr TEST NARRATIVE: The patient's average heart rate was 79 BPM. Heart rates greater than 120 B PM were noted 4% of the time. Heart rates less than 50 BPM were noted 2% of the time. 90 pauses exceeding 2.0 seconds were noted. The longest pause of 2.7 seconds occurred at 03:09:41 AM Sun. 1422 ventricular ectopics, which represented 1% of the total beat count, were noted. The highest pablo tricular ectopic frequency occurred from 07:00 PM to 08:00 PM Sat. During this time 142 VE(s) occurr ed. Ventricular ectopics were observed as 1350 isolated beat(s), as 20 couplet(s) and as 2 run(s). No supraventricular ectopics were noted. Multiple episodes of ST depression (defined as -1.0 m m or more) were noted in channel 1. The maximum depression of -3.1 mm occurred at 07:31:16 PM Sat. Multiple episodes of ST depression (defined as -1.0 mm or more) were noted in channel 2. The maxim um depression of -2.8 mm occurred at 07:20:59 PM Sat. Multiple episodes of ST depression (defined as -1.0 mm or more) were noted in channel 3. The maximum depression of -3.5 mm occurred at 01:04:52 P M Sat. TEST INTERPRETATION: Patient was monitored for 23 hours and 3 minutes. Patient is in atrial fibr illation. Average heart rate of 79 bpm, minimum heart rate of 36 bpm at 3:16 am, maximum heat rate of 162 bpm. 1350 PACs. Two runs of wide complex tachycardia, longest of which is 28 beats. There were 0 PACs. There appears to be 1-[address] segment depression in the precordial leads throughout the rec ording. There are multiple pauses of over 2 seconds, longest being 2.7 seconds at 09:41 am. Signed by : Job Jorge
== END 2017-08-17 18:40 | disposition home health service (06) ==
LOC: NEPC 00:41 → NEDA 02:58 → INTOOBSV 02:58 → HCIN 05:30
PROVIDERS: ADMIT Hospitalist; ATTEND Hospitalist
DX: R29.6 Repeated falls (principal); I25.10 Atherosclerotic heart disease of native coronary artery without angina pectoris; I25.2 Old myocardial infarction; I48.2 Chronic atrial fibrillation; I48.92 Unspecified atrial flutter; R79.1 Abnormal coagulation profile; E78.00 Pure hypercholesterolemia, unspecified; D72.829 Elevated white blood cell count, unspecified; J44.9 Chronic obstructive pulmonary disease, unspecified; I71.4 Abdominal aortic aneurysm, without rupture; K21.9 Gastro-esophageal reflux disease without esophagitis; M85.80 Other specified disorders of bone density and structure, unspecified site; M19.90 Unspecified osteoarthritis, unspecified site; Z98.890 Other specified postprocedural states; Z85.51 Personal history of malignant neoplasm of bladder; Z95.5 Presence of coronary angioplasty implant and graft; Z79.01 Long term (current) use of anticoagulants; Z87.891 Personal history of nicotine dependence; Z86.73 Personal history of transient ischemic attack (TIA), and cerebral infarction without residual deficits
CPT/HCPCS: 70450; 70544; 70548; 70551; 71045; 73590; 73620; 80048; 80162; 82550; 82552; 84484; 85025; 85610; 85730; 93005; 93225; 93226; 94640; 94664; 96374; 96375; 97162; 99291; A9579; G0378; J2930